=== PATIENT | male | born 1940 | race Caucasian/White ===

== ENCOUNTER 2018-07-22 14:38 | Emergency (ER) | payer MEDICARE, OTHER ==
[~2018-07-22] VITALS: Ht 180.3 cm; Wt 93.6 kg
[2018-07-22] MEDS ORDERED: LISI10TA7 PO (15:53)
[2018-07-22] MEDS ORDERED: FINA5TAB41 PO (15:53)
[2018-07-22] MEDS ORDERED: TAMS0.4C32 PO (15:53)
[2018-07-22] MEDS ORDERED: ATOR20TA65 PO (15:53)
[2018-07-22] MEDS ORDERED: TRAZ-186 PO (15:53)
[2018-07-22] MEDS ORDERED: ASPI-556 PO (15:53)
[2018-07-22] MEDS ORDERED: SERT100T12 PO (15:53)
[2018-07-22] MEDS ORDERED: GABA-531 PO (15:53)
[2018-07-22] MEDS ORDERED: METF-444 PO (15:53)
[2018-07-22 20:30] VITALS: BP 111/77
== END 2018-07-22 20:32 | disposition home or self-care (01) ==
LOC: EMS 14:39
DX: F41.9 Anxiety disorder, unspecified (principal); E11.9 Type 2 diabetes mellitus without complications; I10 Essential (primary) hypertension; Z79.82 Long term (current) use of aspirin; Z79.899 Other long term (current) drug therapy